=== PATIENT | male | born 1950 | race Caucasian/White ===

== ENCOUNTER 2018-11-02 16:08 | Inpatient (IN) | payer OTHER ==
[~2018-11-02] VITALS: Ht 182.9 cm; Wt 119.3 kg
[~2018-11-02 16:08] MED LIST: ALLEGRA ALLERG180 MG PO; ASTEPRO205.5 MCG/ SPRAY; BAYER CHEWABLE81 MG PO; CHROMIUM; CINNAMON; CINNAMON500 MG PO; CLARITIN10 MG PO; COREG25 MG PO; COZAAR 25 MG TA25 M2; CRESTOR10 MG PO; DILTIAZEM 24HR120 M2 PO; FISH OIL 1,001000 M2 PO; FISH OIL 1,001000 MG PO; FLECTOR PATCH1 EA TRANSDERM; FLOMAX0.4 MG PO; GLUCOSAMINE-CH1 EA22; JARDIANCE25 MG PO; LOSARTAN-HCTZ1 EAC2 PO; LYRICA 75 MG CA75 MG PO; MELADOX3 MG; MELATONIN5 M4 PO; METFORMIN HCL500 MG PO; NASONEX17 GM SPRAY; NIACIN 500 MG500 M1 PO; NIACIN500 MG PO; NORCO 5-325 TA1 EACH PO; NORFLEX100 MG PO; NOVOLOG100 UNIT/1 SUBQ; SINGULAIR 10 MG10 M1 PO; TRAMADOL 50 MG50 MG PO; UNICOMPLEX M TA1 TA1 PO; VITAMIN C500 MG PO; VITAMIN D-32000 UNIT PO; VITAMINC500 PO; VYTORIN 10-101 EACH; VYTORIN 10-201 EACH PO; VYTORIN 10-401 EACH PO
[2018-11-02 16:55] VITALS: BP 159/89
[2018-11-02 18:23] LABS: ABSOLUTE NEUTROPHILS 5.5 thou/uL (1.4-8.2); BASOPHILS 0.7 % (0.0-2.0); EOSINOPHILS 1.9 % (0.0-3.0); HEMATOCRIT 39.1 % (42.0-52.0); HEMOGLOBIN 12.9 gm/dL (14.0-18.0); LYMPHOCYTES 17.3 % (24.0-44.0); MCH 29.1 pg (26.0-34.0); MCHC 33.1 g/dL (28.0-37.0); MCV 87.9 fL (80.0-100.0); MONOCYTES 6.3 % (1.0-8.0); PLATELET COUNT 175 thou/uL (150-400); POLYS 73.8 % (36.0-66.0); RBC 4.45 mil/uL (4.50-6.00); RDW 14.2 % (10.5-14.5); WBC 7.4 thou/uL (4.0-11.0)
[2018-11-02 18:37] LABS: ALBUMIN 3.5 g/dL (3.4-5.0); CREATININE 2.4 mg/dL (0.7-1.3); POTASSIUM 4.6 mmol/L (3.5-5.1); TOTAL BILIRUBIN 0.2 mg/dL (<0.1-1.0)
--- NOTE | 2018-11-02 20:03 | NUR ---
58 YO MALE DIRECT ADMIT TO 212. ADMISSION ASSESSMENT COMPLETED, VSS, ALERT AND ORIENTED X 4. CONSENT SIGNED FOR PACEMAKER PLACEMENT IN THE MORNING. NO COMPLAINTS OF PAIN.
[2018-11-02 22:34] VITALS: BP 148/80
[2018-11-03] VITALS (8 sets, daily range): BP systolic 144–191; BP diastolic 77–105
[2018-11-03 09:17] LABS: EOSINOPHILS 1.8 % (0.0-3.0)
[2018-11-03 09:19] LABS: ABSOLUTE NEUTROPHILS 5.3 thou/uL (1.4-8.2); BASOPHILS 1.1 % (0.0-2.0); HEMOGLOBIN 13.1 gm/dL (14.0-18.0); LYMPHOCYTES 19.9 % (24.0-44.0); MCH 29.1 pg (26.0-34.0); MCHC 32.8 g/dL (28.0-37.0); MCV 88.8 fL (80.0-100.0); MONOCYTES 8.4 % (1.0-8.0); PLATELET COUNT 180 thou/uL (150-400); POLYS 68.8 % (36.0-66.0); RBC 4.51 mil/uL (4.50-6.00); RDW 13.8 % (10.5-14.5); WBC 7.6 thou/uL (4.0-11.0)
[2018-11-03 09:41] LABS: ALBUMIN 3.6 g/dL (3.4-5.0); CALCIUM 9.2 mg/dL (8.5-10.1); CREATININE 2.2 mg/dL (0.7-1.3); POTASSIUM 4.1 mmol/L (3.5-5.1); TOTAL BILIRUBIN 0.3 mg/dL (<0.1-1.0); TOTAL PROTEIN 7.2 g/dL (6.4-8.2)
[2018-11-03] MEDS ORDERED: CARDIZEM CD240 MG PO (11:00)
[2018-11-03] MEDS ORDERED: VOLTAREN GEL 1100 G2 TOP (11:01)
[2018-11-03] MEDS ORDERED: TRULICITY1.5 MG/0.5 SUBQ (11:01)
--- NOTE | 2018-11-03 11:58 | 2DMMODE ---
[facility] [place] [address] 2 D/M-MODE ECHOCARDIOGRAM Name: SIDDHARTHA REYES RAY Room #: 212-P ADM IN M.R.#: [id number] Admission: 11/02/18 Attend Phys: Edwin Sauer Discharge: Date of : 50 Report #: [id number] THIS REPORT FOR: //name// APPROVED REPORT Study performed: 11/03/2018 11:12:10 EXAM: Comprehensive 2D, Doppler, and color-flow Echocardiogram Patient Location: Echo lab Room #: [facility] Status: routine BSA: 2.39 HR: 86 bpm BP: 175/87 mmHg Rhythm: NSR Indications Near syncope. Pre-Op pacemaker. Hx: CAD 2D Dimensions RVDd: 32.40 mm IVSd: 13.72 (7-11mm) LVOT Diam: 24.55 (18-24mm) LVDd: 53.09 mm PWd: 13.64 (7-11mm) Ascending Ao: 35.68 (22-36mm) LVDs: 32.42 (25-40mm) Aortic Root: 37.90 mm Volumes Left Atrial Volume (Systole) Single Plane 4CH: 35.98 mL Single Plane 2CH: 68.53 mL LA ESV Index: 23.00 mL/m2 Aortic Valve AoV Peak Jack.: 1.72 m/s AO Peak Gr.: 11.81 mmHg LVOT Max P.89 mmHg LVOT Max V: 0.85 m/s OSITO Vmax: 2.34 cm2 Mitral Valve E/A Ratio: 0.4 MV Decel. Time: 110.56 ms MV E Max Jack.: 0.62 m/s MV A Jack.: 1.61 m/s MV PHT: 32.06 ms IVRT: 94.58 ms [facility] [place] [address] 2 D/M-MODE ECHOCARDIOGRAM Name: SIDDHARTHA REYES [place] Room #: 212-P ADM IN M.R.#: [id number] Admission: 11/02/18 Attend Phys: Edwin Sauer Discharge: Date of : 50 Report #: [id number] Pulmonary Valve PV Peak Jack.: 1.24 m/s PV Peak Gr.: 6.15 mmHg Tricuspid Valve RAP Estimate: 5.00 mmHg Left Ventricle The left ventricle is normal size. There is normal LV segmental wall motion. Mild concentric left ventricular hypertrophy. Left ventricular systolic function is normal. LVEF is 60%. Mild diastolic dysfunction is present (impaired relaxation pattern). Right Ventricle The right ventricle is normal size. The right ventricular systolic function is normal. Atria The left atrium size is normal. The right atrium size is normal. Aortic Valve The aortic valve is normal in structure; mildly calcified. Trace aortic regurgitation. There is no aortic valvular stenosis. Mitral Valve The mitral valve is normal in structure. Mild to moderate mitral regurgitation. Tricuspid Valve The tricuspid valve is normal in structure. Trace tricuspid regurgitation. Unable to assess PA pressure. Pulmonic Valve The pulmonary valve is normal in structure. Trace pulmonic regurgitation. Great Vessels The aortic root measures at the upper limits of normal. The ascending aorta is normal in size. IVC is normal in size and collapses >50% with inspiration. Pericardium There is no pericardial effusion. <Conclusion> [facility] [place] [address] 2 D/M-MODE ECHOCARDIOGRAM Name: SIDDHARTHA REYES [place] Room #: 212-P ADM IN M.R.#: [id number] Admission: 11/02/18 Attend Phys: Edwin Sauer Discharge: Date of : 50 Report #: [id number] The left ventricle is normal size. LVEF is 60%. The aortic valve is normal in structure; mildly calcified. Trace aortic regurgitation. The mitral valve is normal in structure. Mild to moderate mitral regurgitation. The tricuspid valve is normal in structure. Trace tricuspid regurgitation. Unable to assess PA pressure. The pulmonary valve is normal in structure. Trace pulmonic regurgitation. There is no pericardial effusion. <ELECTRONICALLY SIGNED> By: Edwin Gee MD 11/03/18 1158 [id number] Edwin Gee MD /INF
--- NOTE | 2018-11-03 17:23 | NUR ---
ASSESSMENT CHARTED. PT ALERT AND ORIENTED. HAD PACEMAKER PLACEMENT THIS AM. SURGICAL INCISION C/D/I. NO HEMATOMA NOTED. PT DENIED HAVING PAIN OR DISCOMFORT. NO CARDIAC DISTRESS NOTED. CHECKED FREQUENTLY AND NEEDS MET. WILL CONTINUE TO MONITOR.
[2018-11-03 18:55] LABS: URINE BILIRUBIN NEGATIVE (Negative); URINE BLOOD NEGATIVE (Negative); URINE CLARITY CLEAR; URINE COLOR YELLOW; URINE GLUCOSE-RANDOM* TRACE (Negative); URINE KETONES 1+ (Negative); URINE LEUKOCYTES NEGATIVE (Negative); URINE NITRITE NEGATIVE (Negative); URINE PROTEIN (DIPSTICK) 3+ (Negative); URINE UROBILINOGEN 0.2 E.U./dl (0.2-1.0)
[2018-11-03 19:10] LABS: BACTERIA None Seen /HPF (None Seen); CASTS None Seen /LPF (None Seen); CRYSTALS None Seen /LPF (None Seen); MUCUS 0-3 Light strn/LPF (None Seen); SQUAMOUS None Seen /LPF (0-3); URINE RBC 0-2 Rare /HPF (0-2); URINE WBC 0-5 Rare /HPF (0-5)
[2018-11-04 04:38] VITALS: BP 147/73
--- NOTE | 2018-11-04 06:30 | NUR ---
PATIENTS CARES WEE ASSUMED AT SHIFT CHANGE. PATIENT WAS ASSESSED AND MEDS WERE PASSED. PATIENT DID REQUEST PAIN MEDS OTHER THAN TORADOL DUE TO PAIN IN CHEST AREA WERE THE PACEMAKER WAS PLACED. DOCTOR CALL AND ORDER WAS OBTAINED FOR NORCO 7.5 X2 Q6 HOURS. PAIN WAS RELIEVED AND PATIENT DID SLEEP MOST OF THIS SHIFT. PATIENT IS TO D/C TODAY. HOURLY ROUNDING WAS DONE. THE BED S IN A LOW AND LOCKED POSITION.
[2018-11-04 07:26] VITALS: BP 124/63
[2018-11-04] MEDS ORDERED: LOSARTAN-HCTZ1 EAC2 PO (08:44)
[2018-11-04 11:50] VITALS: BP 152/79
[2018-11-04 15:00] VITALS: BP 152/79
--- NOTE | 2018-11-04 15:22 | NUR ---
ASSESSMENT CHARTED. PT ALERT AND ORIENTED. VSS. RECEIVED PRN PAIN MED WITH PARTIAL RELIEF. LEFT CHEST PACEMAKER INCISION C/D/I COVERED WITH GAUZE. NO HEMATOMA NOTED. ORDERS GIVEN TO DISCHARGE PT TO HOME. DISCXHARGE INSTRUCTIONS GIVEN TO PT. PT LEFT THE FACILITY ACCOMPANIED BY THE .
--- NOTE | 2018-11-06 09:52 | CATHLAB ---
[facility] [address] [place] [address] INVASIVE PROCEDURE REPORT Name: SIDDHARTHA REYES Room #: 212-P DIS IN ..#: [id number] Admission: 11/02/18 Attend Phys: Edwin Sauer Discharge: 11/04/18 Date of : 50 Report #: [id number] THIS REPORT FOR: //name// APPROVED REPORT Study performed: 11/03/2018 12:47:31 Patient Status: In-Patient Room #: 212 Event Personnel: Edwin Gee Flask Maker, Reinaldo Gibson RN, Mare Brian Monitor, Rosalva Mcmahon RTR, ROSALIND Joeub, Margaret Rivera RTR Monitor Exam: Insertion of Dual Chamber Permanent Pacemaker The patient is a 68 year-old male with a history of lightheadedness near syncope with documented 6 and 8 second pauses with sinus arrest while awake. Conscious Sedation Versed mg IV Demerol was used in place of fentanyl as noted in the case summary Implanted Devices: [employer] RV lead: Ref# [id number] ; SN [id number] ; use before 2021-09-16 [employer] RA lead : Ref # [id number] ; SN [id number]; use before 2021-09-16 [employer] PM Ref# [id number]; SN [id number]; use before 2020-04-16 Procedure The patient underwent informed consent. We discussed the details of the procedure including the risks, which include, but not limited to bleeding, infection, vascular damage, cardiac perforation, and pneumothorax. He understood these risks and was willing to proceed. As such, he was brought to the EP/Cardiac Catheterization laboratory in a fasting and sedated state and prepped and draped in a The patient underwent conscious sedation, with no related complications. The patient was brought to the EP/Cardiac Catheterization laboratory and the left chest and shoulder were prepped and draped in a sterile manner. The left subclavian region was infiltrated with 2% Lidocaine subcutaneous anesthesia. A transverse incision was made in the left upper chest cavity. The subcutaneous pocket was formed via blunt dissection. Percutaneous [address] [address] INVASIVE PROCEDURE REPORT Name: SIDDHARTHA REYES JAMES Room #: 212-P [facility].#: [id number] Admission: 11/02/18 Attend Phys: Edwin Sauer Discharge: 11/04/18 Date of : 50 Report #: [id number] venous access was achieved and an introducer sheath was inserted into the left Subclavian vein. Sheaths were positions using the modified Seldinger technique Utilizing fluoroscopic guidance, the atrial and ventricular lead wires were advanced over the wires and positioned in the right atria and right ventricle respectively. Capturing and sensing thresholds were verified. Electrode Parameters P Wave: 1.1mV R Wave: >12.0mV Atrial Threshold: 0.5v@0.4ms Ventricular Threshold: 0.5v@0.4ms Atrial Resistance: 410 Ventricular Resistance: 560 Dual Chamber The atrial and ventricular leads were then secured using 2.0 ethibond sutures. The subcutaneous pocket was irrigated with vancomycin antibiotic solution.The atrial and ventricular leads were attached to the appropriate receptacles on the pulse generator and set screws firmly tightened to insure adequate contact and stability. The lead and pulse generator were placed into the subcutaneous pocket. Sharp and sponge counts were confirmed to be correct. At this time the pocket was closed subcutaneously with a 0 nonabsorbable suture and the skin was closed with a 3.0 Vicryl. The operative site was dressed in sterile fashion with steri strips, 4 x 4 and OpSite and the patient was transferred to the floor in stable condition. Complications The patient tolerated the procedure well and there were no complications associated with the procedure. Findings Specimens Removed: No Estimated Blood Loss: 5 mL Conclusion 1. Successful implantation of a dual-chamber pacemaker with the ventricular lead in the ventricular septum and the atrial lead in the right atrial appendage [facility] [address] [place] [address] INVASIVE PROCEDURE REPORT Name: SIDDHARTHA REYES Room #: 212-P DIS IN M.R.#: [id number] Admission: 11/02/18 Attend Phys: Edwin Sauer Discharge: 11/04/18 Date of : 50 Report #: [id number] Recommendations 1. Routine post implantation protocol <ELECTRONICALLY SIGNED> By: Edwin Gee MD 11/06/18951 1 1 Edwin Gee MD /INF
== END 2018-11-04 15:29 | disposition home or self-care (01) | DRG 243 ==
LOC: 3N 16:08 → 2N 16:15 → ENTRNSPT 11-04 15:14 → EDTRNSPTSTS 11-04 15:17 → 2N 11-04 15:29
PROVIDERS: Nurse Practitioner; ADMIT Internal Medicine
PROC: 0JH606Z Insertion of Pacemaker, Dual Chamber into Chest Subcutaneous Tissue and Fascia, Open Approach (ICD-10-PCS; principal; 2018-11-03)
PROC: 02HK3JZ Insertion of Pacemaker Lead into Right Ventricle, Percutaneous Approach (ICD-10-PCS; principal; 2018-11-03)
PROC: 02H63JZ Insertion of Pacemaker Lead into Right Atrium, Percutaneous Approach (ICD-10-PCS; principal; 2018-11-03)
DX: I44.2 Atrioventricular block, complete (principal); N18.4 Chronic kidney disease, stage 4 (severe); I25.10 Atherosclerotic heart disease of native coronary artery without angina pectoris; I10 Essential (primary) hypertension; E78.5 Hyperlipidemia, unspecified; E11.22 Type 2 diabetes mellitus with diabetic chronic kidney disease; N18.9 Chronic kidney disease, unspecified; Z79.82 Long term (current) use of aspirin; Z79.899 Other long term (current) drug therapy; Z91.040 Latex allergy status; Z82.49 Family history of ischemic heart disease and other diseases of the circulatory system; Z82.3 Family history of stroke; Z87.891 Personal history of nicotine dependence
CPT/HCPCS: 10081; 10797

== ENCOUNTER → 2019-12-06 | Outpatient (CLI) | payer OTHER ==
[~2019-12-06] MED LIST changes: +CARDIZEM CD240 MG PO; +TRULICITY1.5 MG/0.5 SUBQ; +VOLTAREN GEL 1100 G2 TOP
== END ==
LOC: SJCVC 16:05
PROVIDERS: ATTEND Internal Medicine
DX: I44.30 Unspecified atrioventricular block (principal); I25.10 Atherosclerotic heart disease of native coronary artery without angina pectoris; R55 Syncope and collapse; I12.9 Hypertensive chronic kidney disease with stage 1 through stage 4 chronic kidney disease, or unspecified chronic kidney disease; E11.22 Type 2 diabetes mellitus with diabetic chronic kidney disease; N18.4 Chronic kidney disease, stage 4 (severe); Z79.4 Long term (current) use of insulin

== ENCOUNTER → 2020-06-05 | Outpatient (CLI) | payer OTHER | LOC: SJCVC 13:10 | PROVIDERS: ATTEND Internal Medicine | DX: I44.0 Atrioventricular block, first degree (principal); I45.10 Unspecified right bundle-branch block; R94.31 Abnormal electrocardiogram [ECG] [EKG]; I25.10 Atherosclerotic heart disease of native coronary artery without angina pectoris; I12.9 Hypertensive chronic kidney disease with stage 1 through stage 4 chronic kidney disease, or unspecified chronic kidney disease; I44.30 Unspecified atrioventricular block; E11.22 Type 2 diabetes mellitus with diabetic chronic kidney disease; N18.4 Chronic kidney disease, stage 4 (severe); E78.5 Hyperlipidemia, unspecified; E78.00 Pure hypercholesterolemia, unspecified; Z79.4 Long term (current) use of insulin; Z95.0 Presence of cardiac pacemaker; Z88.8 Allergy status to other drugs, medicaments and biological substances; Z79.82 Long term (current) use of aspirin; Z79.1 Long term (current) use of non-steroidal anti-inflammatories (NSAID) ==

== ENCOUNTER → 2020-07-31 | Outpatient (CLI) | payer OTHER | LOC: SJCVC 10:52 | PROVIDERS: ATTEND Internal Medicine | DX: E78.00 Pure hypercholesterolemia, unspecified (principal); E11.9 Type 2 diabetes mellitus without complications; R55 Syncope and collapse; Z95.0 Presence of cardiac pacemaker; Z79.82 Long term (current) use of aspirin; Z79.4 Long term (current) use of insulin; Z79.899 Other long term (current) drug therapy ==